=== PATIENT | male | born 1965 | race Caucasian/White ===

== ENCOUNTER → 2021-09-19 09:50 | Outpatient (CLI) | payer OTHER, MEDICAID, SELFPAY ==
[2021-09-19 12:03] LABS: COVID19 -Nasal RAPID Negative (Negative)
== END ==
PROVIDERS: Referring Provider Orthopaedic Surgery; Visit Provider Orthopaedic Surgery
DX: Z20.822 Contact with and (suspected) exposure to COVID-19 (principal)
CPT/HCPCS: 87635; C9803

== ENCOUNTER 2021-09-21 09:32 | Day surgery (SDC) | payer OTHER, MEDICAID, SELFPAY ==
[2021-09-21 10:00] VITALS: BP 129/93; PULSE 68; RESP 16; TEMP 36.6; O2SAT 99; BMI 23.8
[2021-09-21] MEDS: LACTATED RINGERS 1,000 ML 42 ML IV (10:00)
--- NOTE | 2021-09-21 10:42 | PM.PREOP ---
Pre-operative Note COVID-19 COVID-19 status: Negative Interval Note History & Physical reviewed/Exam performed by Physician: Yes Changes to H&P: No
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
--- NOTE | 2021-09-21 11:06 | PM.OP.1 ---
Operative Date/Time/Diagnoses Date of procedure: 09/21/21 Time of procedure: 11:10 Pre-op diagnosis: Right carpal tunnel syndrome Post-op diagnosis: same Procedure & Clinicians Procedure: Right carpal tunnel release Same procedure as scheduled: Yes Indications: This is the 56-year-old gentleman with multiple orthopedic problems who has EMG positive findings for carpal tunnel syndrome and symptoms consistent with carpal tunnel syndrome. He is brought the operating room for carpal tunnel release. Procedure options risks benefits and complications were discussed in detail. Surgeon: Joanne Cheek Click Yes if Unassisted: Yes Anesthesia Type: General Operative Notes Findings: Moderate to severe median nerve compression with deformity, no other abnormalities in the carpal canal Closure Type: primary Specimen(s): none sent Estimated Blood Loss (mL): 20 Blood products transfused: none Tourniquet time (min): 10 Procedure in detail: Patient brought the operating room he underwent induction of a general anesthesia. A time-out was performed. He was given 2 g of IV antibiotics Ancef. Patient's right upper extremity prepped draped standard sterile fashion. High arm tourniquet was applied and elevated. Incision was made at the base of the palm directly over the transverse carpal ligament dissection was carried out through skin and subcutaneous tissues. Palmar fascia was incised in line with the skin incision. Small arms retractor was used. Distal extent of the transverse carpal ligament was carefully identified. The transverse carpal ligament was meticulously released using a hemostat to protect the underlying median nerve. The antebrachial fascia was released with the Calzada scissors. Lidocaine was carefully injected. The wounds closed with interrupted 4-0 nylon. The wound was dressed sterilely. Complications: none Post-operative Condition: stable Disposition: same day surgery Plan for aftercare: Use splint for 10 days. Keep wound dry.
[2021-09-21] MEDS: CEFAZOLIN IV (11:15)
[2021-09-21] MEDS: NACL 0.9% IV (11:15)
[2021-09-21] MEDS: LIDOCAINE 1% 20 ML INJ (11:21)
--- NOTE | 2021-09-21 11:25 | SUR.OPER ---
Supine on padded OR bed, head on pillow, LEFT arms secured on padded arm boards at <90 degrees abduction, RIGHT ARM ON ARM TABLE, legs uncrossed, safety belt at thigh, tape over blanket over lower legs.
[2021-09-21 11:41] VITALS: BP 127/83; PULSE 79; RESP 17; TEMP 36.3; O2SAT 99
[2021-09-21 11:46] VITALS: BP 106/70; PULSE 90; RESP 16; O2SAT 95
[2021-09-21 11:54] VITALS: BP 122/81; PULSE 81; RESP 16; O2SAT 95
[2021-09-21 12:16] VITALS: BP 128/83; PULSE 75; RESP 16; TEMP 36.4; O2SAT 95
== END 2021-09-21 12:21 | disposition home or self-care (01) ==
PROVIDERS: PCP Family Medicine; Referring Provider Orthopaedic Surgery; Visit Provider Orthopaedic Surgery
PROC: (CPT 64721; principal; 2021-09-21 11:15)
DX: G56.01 Carpal tunnel syndrome, right upper limb (principal)
CPT/HCPCS: 64721; J0690; J1100; J1885; J2250; J2405; J2704; J3010